=== PATIENT | female | born 1930 | race Hispanic/Latino ===

== ENCOUNTER 2018-09-23 08:44 | Emergency (ER) | payer MEDICARE ==
[2018-09-23] MEDS ORDERED: Ondansetron PF 4 MG/2 ML Vial ONE (09:16)
[2018-09-23 09:23] LABS: #Lymphocytes 1.8 thou/uL (1.20-3.40); #Monocytes 0.5 thou/uL (0.11-0.59); #Neutrophils 6.4 thou/uL (1.40-6.50); %Basophils 0.1 % (0.0-1.0); %Eosinophils 0.1 % (0.0-10.0); %Lymphocytes 20.3 % (21.0-51.0); %Neutrophils 73.5 % (42.0-75.0); Hemoglobin 12.7 g/dL (12.0-16.0); Mean Corpuscular HGB CONC 32.7 g/dL (32.0-36.0); Mean Corpuscular Hemoglobin 30.8 pg (27.0-31.0); Mean Corpuscular Volume 94.1 fL (78.0-98.0); Mean Platelet Volume 7.7 fL (7.4-10.4); Platelet Count 291 thou/uL (130-400); RBC Distribution Width 11.2 % (11.5-14.5); Red Blood Cell (RBC) Count 4.12 mill/uL (4.20-5.40); White Blood Cell (WBC) Count 8.7 thou/uL (4.8-10.8)
[2018-09-23 09:47] LABS: ALT (SGPT) 11 U/L (8-55); AST (SGOT) 17 U/L (5-34); Albumin 4.6 g/dL (3.4-4.8); Alkaline Phosphatase 75 U/L (40-150); Anion Gap 18 mmol/L (10-20); BUN (Urea Nitrogen) 31 mg/dL (9.8-20.1); Bilirubin, Total 0.9 mg/dL (0.2-1.2); Calc. Creatinine Clearance 0 mL/min (70-130); Calcium 10.5 mg/dL (7.8-10.44); Carbon Dioxide 29 mmol/L (23-31); Chloride 94 mmol/L (98-107); Estimated GFR-MDRD 36; Globulin 3.3 g/dL (2.4-3.5); Glucose 151 mg/dL (83-110); Lipase 11 U/L (8-78); Potassium 4.2 mmol/L (3.5-5.1); Protein, Total 7.9 g/dL (6.0-8.3); Sodium 137 mmol/L (136-145)
[2018-09-23 10:48] LABS: Bilirubin Negative (Negative); Blood, Urine Trace (Negative); Clarity CLEAR (Clear); Glucose, Urine (Dipstick) Negative (Negative); Leukocyte Negative (Negative); Nitrite Negative (Negative); Protein, Urine (Dipstick) 30 mg/dL (Neg-Trace); Specific Gravity, Urine 1.015 (1.005-1.030); Urobilinogen 0.2 mg/dL (0.2-1.0); pH, Urine 8.5 (5.0-9.0)
[2018-09-23 10:49] LABS: Bacteria/HPF 2+ HPF (None Seen); Hyaline Casts/LPF NONE SEEN LPF (0-3 Hyaline); RBC/HPF 0-3 HPF (0-3); WBC/HPF 21-50 HPF (0-3)
== END 2018-09-23 11:12 | disposition home or self-care (01) ==
LOC: ERS 08:44
DX: R11.2 Nausea with vomiting, unspecified (principal); K21.9 Gastro-esophageal reflux disease without esophagitis; I10 Essential (primary) hypertension; M81.0 Age-related osteoporosis without current pathological fracture; Z79.899 Other long term (current) drug therapy; Z86.73 Personal history of transient ischemic attack (TIA), and cerebral infarction without residual deficits
CPT/HCPCS: 80053; 81003; 81015; 83690; 85025; 96361; 96374; J2405

== ENCOUNTER 2018-09-24 07:53 | Outpatient (CLI) | payer MEDICARE, OTHER ==
--- NOTE | 2018-09-24 08:50 | CT ---
CT BRAIN: History: Episodes of weakness. Dehydration. FINDINGS: Noncontrast enhanced CT images of the brain obtained. Brain and bone windows obtained. Images demonstrate the brain to be unremarkable. No evidence of intracranial masses, hemorrhages, str okes or contusions seen. Ventricles are of normal size. IMPRESSION: Normal CT brain. POS: [facility]
== END 2018-09-24 07:54 | disposition home or self-care (01) ==
LOC: BICCT 07:53
PROVIDERS: ATTEND Internal Medicine Geriatric Medicine
DX: G45.9 Transient cerebral ischemic attack, unspecified (principal)
CPT/HCPCS: 70450

== ENCOUNTER 2019-03-12 11:11 | Emergency (ER) | payer MEDICARE, OTHER ==
--- NOTE | 2019-03-12 11:36 | RAD ---
XR Shoulder Rt 3 View STANDARD HISTORY: Fall, right shoulder pain FINDINGS: No fracture or dislocation is identified. Degenerative changes are noted.
== END 2019-03-12 12:20 | disposition home or self-care (01) ==
LOC: ERS 11:11
DX: S46.001A Unspecified injury of muscle(s) and tendon(s) of the rotator cuff of right shoulder, initial encounter (principal); I10 Essential (primary) hypertension; M81.0 Age-related osteoporosis without current pathological fracture; Z86.73 Personal history of transient ischemic attack (TIA), and cerebral infarction without residual deficits; Z79.899 Other long term (current) drug therapy; W19.XXXA Unspecified fall, initial encounter

== ENCOUNTER 2019-03-26 08:59 | Outpatient (CLI) | payer MEDICARE, OTHER ==
--- NOTE | 2019-03-26 11:29 | MMO ---
Bilateral MAMMO Bilat Screen DDI+ADAL. CLINICAL HISTORY: Patient is 88 years old and is seen for screening. The patient has no family history of breast cancer. The patient has no personal history of cancer. VIEWS: The views performed were: bilateral craniocaudal with tomosynthesis and bilateral mediolateral oblique with tomosynthesis. FILMS COMPARED: The present examination has been compared to a prior imaging study performed at [facility] on 03/19/2018. MAMMOGRAM FINDINGS: There are scattered fibroglandular densities. Finding 1: There is a new lobular mass measuring 14 millimeters seen in the middle region of the right breast at 10 o'clock. Finding 2: There are vascular calcifications seen in both breasts. IMPRESSION: FINDING 1: NEW MASS IN THE RIGHT BREAST REQUIRES ADDITIONAL EVALUATION. AN ULTRASOUND EXAM IS RECOMMENDED IF NEEDED. ADDITIONAL IMAGING. FINDING 2: CALCIFICATIONS IN BOTH BREASTS ARE BENIGN. THE RESULTS OF THIS EXAM WERE SENT TO THE PATIENT. ACR BI-RADS Category 0 - Incomplete: Need additional imaging evaluation. [facility] will notify the patient of the need for additional imaging services. MAMMOGRAPHY NOTE: 1. A negative mammogram report should not delay a biopsy if a dominant of clinically suspicious mass is present. 2. Approximately 10% to 15% of breast cancers are not detected by mammography. 3. Adenosis and dense breasts may obscure an underlying neoplasm. Reported by: BRENNA GUTIÉRREZ MD Electonically Signed: [id number]
== END 2019-03-26 09:00 | disposition home or self-care (01) ==
LOC: BICMAMMO 08:59
PROVIDERS: ATTEND Family Medicine
DX: Z12.31 Encounter for screening mammogram for malignant neoplasm of breast (principal); R92.1 Mammographic calcification found on diagnostic imaging of breast
CPT/HCPCS: 77063; 77067

== ENCOUNTER 2019-04-05 12:49 | Outpatient (CLI) | payer MEDICARE, OTHER ==
--- NOTE | 2019-04-05 13:58 | MMO ---
Right Breast MAMMO Unilat Diag DDI RT+ADAL. CLINICAL HISTORY: Patient is 88 years old and is seen for additional evaluation requested from prior study. The patient has no family history of breast cancer. The patient has no personal history of cancer. VIEWS: The views performed were: right craniocaudal spot compression with tomosynthesis; right mediolateral oblique spot compression with tomosynthesis; and right mediolateral with tomosynthesis. FILMS COMPARED: The present examination has been compared to prior imaging studies performed at [facility] on 03/19/2018, 03/26/2019 and 04/05/2019. This study has been interpreted with the assistance of computer-aided detection. MAMMOGRAM FINDINGS: There are scattered fibroglandular densities. There is a lobular mass measuring 14 millimeters seen in the upper-outer region of the right breast. IMPRESSION: MASS IN THE RIGHT BREAST IS SUSPICIOUS. BIOPSY IS RECOMMENDED. THE RESULTS OF THIS EXAM WERE SENT TO THE PATIENT. ACR BI-RADS Category 4 - Suspicious abnormality - biopsy should be considered MAMMOGRAPHY NOTE: 1. A negative mammogram report should not delay a biopsy if a dominant of clinically suspicious mass is present. 2. Approximately 10% to 15% of breast cancers are not detected by mammography. 3. Adenosis and dense breasts may obscure an underlying neoplasm. Reported by: KELSEY GR MD Electonically Signed: [id number]
--- NOTE | 2019-04-05 14:53 | ULT ---
FOCUSED ULTRASOUND RIGHT BREAST: DATE: 04/05/2019. COMPARISON: None. HISTORY: Abnormal mammogram, evaluate for a sonographic correlate. FINDINGS: Focused ultrasound of the right breast at the 10 o'clock position 4 cm from the nipple demonstrates a loculated solid hypoechoic mass with internal blood flow measuring 1.9 x 0.9 x 1.6 cm. This correla tiara in size and location with the mammographic abnormality. There is an additional solid hypoechoic nodule immediately adjacent to this measuring 6 x 5 mm. IMPRESSION: BI-RADS IV- suspicious abnormality. Findings are suspicious for malignancy. Recommend ultrasound-gu ided core biopsy. Results and recommendations for biopsy discussed with the patient and the patient's daughter in perso n by Dr. Rousseau at the time of interpretation 04/05/2019. CODE CR POS: OFF
== END 2019-04-05 12:50 | disposition home or self-care (01) ==
LOC: BICMAMMO 12:49
PROVIDERS: ATTEND Family Medicine
DX: N63.11 Unspecified lump in the right breast, upper outer quadrant (principal)
CPT/HCPCS: 76642; 77065; G0279

== ENCOUNTER → 2019-04-19 | Day surgery (SDC) | payer MEDICARE, OTHER ==
--- NOTE | 2019-04-19 13:42 | MMO ---
Right Breast MAMMO Unilat Diag DDI RT. CLINICAL HISTORY: Patient is 88 years old and is seen for breast biopsy. The patient has no family history of breast cancer. The patient has no personal history of cancer. The patient has a history of right Ultrasound Guided Core Biopsy in March,. VIEWS: The views performed were: right craniocaudal and right mediolateral oblique. FILMS COMPARED: The present examination has been compared to prior imaging studies performed at [facility] on 03/19/2018, 03/26/2019 and 04/05/2019. This study has been interpreted with the assistance of computer-aided detection. MAMMOGRAM FINDINGS: There are scattered fibroglandular densities. There is a stable lobular mass seen in the right breast at 10 o'clock. There is a new biopsy clip adjacent to the mass. IMPRESSION: STABLE MASS IN THE RIGHT BREAST IS SUSPICIOUS. THE RESULTS OF THIS EXAM WERE SENT TO THE PATIENT. ACR BI-RADS Category 4 - Suspicious abnormality - biopsy should be considered MAMMOGRAPHY NOTE: 1. A negative mammogram report should not delay a biopsy if a dominant of clinically suspicious mass is present. 2. Approximately 10% to 15% of breast cancers are not detected by mammography. 3. Adenosis and dense breasts may obscure an underlying neoplasm. Reported by: BRENNA GUTIÉRREZ MD Electonically Signed: [id number]
--- NOTE | 2019-04-19 14:00 | ULT ---
Dictated in error.
--- NOTE | 2019-04-20 07:59 | ULT ---
ULTRASOUND GUIDED RIGHT BREAST MASS BIOPSY: Date: 04/19/19 INDICATION: History of right breast mass in 10 o'clock position. TECHNIQUE: Informed consent was obtained. Preprocedure ultrasound examination demonstrated the lobulated lesion within the right breast 10 o'clock position, 4.0 cm from the nipple. The additional smaller 6.0 mm le adilia reported adjacent to this lesion, was not identified and was likely related to an extension of t his larger lobulated lesion. Therefore, no additional biopsy was performed. Site overlying this right breast mass was prepped and draped in the usual sterile fashion. Buffered 1% lidocaine was administe red to overlying subcutaneous tissues. Small dermatotomy was made. A 14 gauge Bard core biopsy gun wa s guided down to the lesion. Four separate core samples were obtained through the lesion. Following t he fourth sample, a biopsy clip was placed within the mass lesion. Pressure was held at the biopsy si te until hemostasis was obtained. The patient tolerated the biopsy without difficulty. IMPRESSION: BI-RADS Category 4 - Suspicious abnormality. Status post ultrasound guided core biopsy of the right b reast mass 10 o'clock lesion, 4.0 cm from the nipple. POS: OFF
== END ==
LOC: BICULT 12:41
PROVIDERS: ATTEND Family Medicine
PROC: 0HBT3ZX Excision of Right Breast, Percutaneous Approach, Diagnostic (ICD-10-PCS; principal; 2019-04-19)
DX: C50.411 Malignant neoplasm of upper-outer quadrant of right female breast (principal)
CPT/HCPCS: 19083; 88305; 88341; 88342

== ENCOUNTER 2019-05-04 12:14 | Outpatient (CLI) | payer MEDICARE ==
--- NOTE | 2019-05-04 13:37 | ULT ---
BILATERAL CAROTID DUPLEX ULTRASOUND: HISTORY: Facial numbness. TECHNIQUE: Sy scale ultrasound with color flow and spectral Doppler imaging of the intracranial carotid artery systems is performed bilaterally. FINDINGS: No significant plaque formation is seen on the right. The peak systolic velocity in the right ICA measures 124 cm/s with an end-diastolic velocity of 18 cm /s and a systolic ratio of 1.47. The peak systolic velocity in the left ICA measures 88 cm/s with an end-diastolic velocity of 15 cm/s and a systolic ratio of 0.98. Flow in both vertebral arteries remains antegrade. IMPRESSION: No evidence of hemodynamically significant stenosis. POS: [facility]
== END 2019-05-04 12:15 | disposition home or self-care (01) ==
LOC: BICULT 12:14
PROVIDERS: ATTEND Surgery
DX: G45.9 Transient cerebral ischemic attack, unspecified (principal); R20.8 Other disturbances of skin sensation
CPT/HCPCS: 93880

== ENCOUNTER 2019-05-25 05:23 | Outpatient (CLI) | payer MEDICARE ==
[2019-05-25 11:42] LABS: #Eosinphils 0.1 thou/uL (0.0-0.7); #Lymphocytes 1.9 thou/uL (1.20-3.40); #Monocytes 0.6 thou/uL (0.11-0.59); #Neutrophils 5.2 thou/uL (1.40-6.50); %Basophils 0.5 % (0.0-1.0); %Eosinophils 0.7 % (0.0-10.0); %Lymphocytes 24.9 % (21.0-51.0); %Monocytes 7.3 % (0.0-10.0); %Neutrophils 66.6 % (42.0-75.0); Hemoglobin 11.5 g/dL (12.0-16.0); Mean Corpuscular HGB CONC 33.9 g/dL (32.0-36.0); Mean Corpuscular Hemoglobin 31.4 pg (27.0-31.0); Mean Corpuscular Volume 92.5 fL (78.0-98.0); Mean Platelet Volume 7.3 fL (7.4-10.4); Platelet Count 224 thou/uL (130-400); RBC Distribution Width 11.1 % (11.5-14.5); Red Blood Cell (RBC) Count 3.67 mill/uL (4.20-5.40); White Blood Cell (WBC) Count 7.8 thou/uL (4.8-10.8)
[2019-05-25 12:09] LABS: Anion Gap 13 mmol/L (10-20); BUN (Urea Nitrogen) 17 mg/dL (9.8-20.1); Calc. Creatinine Clearance 0 mL/min (70-130); Calcium 9.5 mg/dL (7.8-10.44); Carbon Dioxide 24 mmol/L (23-31); Chloride 99 mmol/L (98-107); Estimated GFR-MDRD 60; Glucose 105 mg/dL (83-110); Potassium 4.3 mmol/L (3.5-5.1); Sodium 132 mmol/L (136-145)
--- NOTE | 2019-05-26 07:17 | EKG ---
Test Reason : Blood Pressure : / mmHG Vent. Rate : 065 BPM Atrial Rate : 065 BPM P-R Int : 128 ms QRS Dur : 070 ms QT Int : 384 ms P-R-T Axes : 063 043 042 degrees QTc Int : 399 ms Normal sinus rhythm Normal ECG When compared with ECG of 20-JAN-2017 09:56, No significant change was found Confirmed by DR. Shira AVILES ([id number]) on 05/26/2019 7:17:11 AM Referred By: AMY Confirmed By:DR. Shira AVILES
== END 2019-05-25 05:24 | disposition home or self-care (01) ==
LOC: LABBT 05:23
PROVIDERS: ATTEND Surgery
DX: Z01.818 Encounter for other preprocedural examination (principal); C50.919 Malignant neoplasm of unspecified site of unspecified female breast
CPT/HCPCS: 80048; 85025; 93005; 93010

== ENCOUNTER 2019-05-28 07:47 | Day surgery (SDC) | payer MEDICARE ==
[2019-05-25 10:42] VITALS: BMI 24.0
--- NOTE | 2019-05-28 08:48 | NM ---
Exam: Nuclear medicine lymphoscintigraphy HISTORY: Right breast cancer. Evaluate for sentinel lymph node TECHNIQUE: Patient measured 0.412 mCi of technetium 99m filtered sulfur colloid subcutaneously Radiotracer was administered at the 12:00, 3:00, 6:00 and 9:00 position of the breast. FINDINGS: [place] lymph node is noted in the right axilla. IMPRESSION: Right axillary sentinel lymph node
[2019-05-28] MEDS ORDERED: Succinylcholine Chloride 20 MG/ML 10 ml SYRINGE FS ONE (10:08)
[2019-05-28] MEDS ORDERED: Esmolol 100 MG/10 ML VIAL ONE (10:08)
[2019-05-28] MEDS ORDERED: ePHEDrine/0.9% NaCl/PF SYRINGE 50 mg/10 ml ONE (10:08)
[2019-05-28] MEDS ORDERED: Dexamethasone 20 MG/5 ML VIAL ONE (10:08)
[2019-05-28] MEDS ORDERED: PROPOFOL 200 MG/20 ML VIAL ONE (10:08)
[2019-05-28] MEDS ORDERED: Lidocaine 1% PF 5 ML VIAL ONE (10:08)
[2019-05-28] MEDS ORDERED: Isosulfan Blue 50 MG/5 ML VIAL ONE (14:01)
[2019-05-28] MEDS ORDERED: Bupivacaine HCl 0.5%/Epinephrine 1:200,000/PF 30 ml Vial ONE (14:01)
[2019-05-28] MEDS ORDERED: Famotidine/PF 20 mg/2ml Vial ONE (14:02)
[2019-05-28] MEDS ORDERED: Fentanyl 100 MCG/2 ML VIAL ONE ×2 (14:02→15:07)
--- NOTE | 2019-05-28 16:05 | MMO ---
MAMMO Surgial Specimen HISTORY: Specimen radiograph. COMPARISON: None. FINDINGS: A single specimen radiograph shows a biopsy clip and what appears to be of breast mass with in the specimen. IMPRESSION: Successful excisional biopsy of biopsy clip and associated breast mass
--- NOTE | 2019-06-02 15:19 | PDOC.OP ---
Operative Note - Operative Note Operative Note: PROCEDURE: Right breast lumpectomy and sentinel lymph node biopsy SURGEON: Tejas Rodriguez M.D. DATE: 05/28/2019 PREOPERATIVE DIAGNOSIS: Right breast cancer POSTOPERATIVE DIAGNOSIS: Right breast cancer HISTORY: Patient with recently diagnosed right breast cancer test decided to proceed with breast conservation therapy. The mass is palpable in the upper outer quadrant and is easily seen on ultrasound and her axilla is clinically negative. PROCEDURE IN DETAIL: After informed consent was obtained the patient was taken to the operating room and placed in the supine position. General anesthesia was administered and the breast was prepped with alcohol and lymphazurin injected subdermally behind the nipple. The breast was massaged for 5 minutes, and then the patient was positioned, prepped and draped. Local anesthesia was infused to the lower edge of the hairbearing skin of the axilla. The skin was incised and dissection carried down to the area of highest activity by neoprobe. 2 lymph nodes with increased activity were identified and excised and target counts performed. The first one had a target count of 11 and was blue. The second one had a target count of 96 and was also blue. Both were clinically normal in appearance. The axilla was examined and palpated and no other palpable abnormal nodes nor areas of increased activity were found. The wound was irrigated and hemostasis verified. Additional local anesthesia was infused for postoperative pain control and the subcutaneous tissues were reapproximated with 3-0 Monocryl suture and the skin closed with 4-0 Monocryl suture. Attention was then turned to the lumpectomy. The mass in the right breast was identified by ultrasound and a needle localization carried out under ultrasound guidance. Local anesthesia was infused the skin and subcutaneous tissues, and an incision was made directly over the mass. Flaps were raised in all directions and dissection was then carried down circumferentially around the wire to below the level of the mass and wire. The tissues deep to the mass were then transected and the specimen was removed and marked for orientation with a long lateral, short superior, and looped superficial suture. The wire was removed, and the mass was sent for specimen mammogram which showed presence of the mass and clip within the specimen. The wound was irrigated and hemostasis obtained using Bovie electrocautery. Additional local anesthesia was infused circumferentially for postoperative pain control. The subcutaneous tissues were reapproximated with a running 3-0 Monocryl suture and additional local anesthesia infused into the biopsy cavity. The skin was then closed with a running 4-0 subcuticular Monocryl suture. Dermabond dressings were placed to both incisions and once this was dry, fluffs compression dressings were placed and secured to the skin with tape. The patient was extubated and taken to the recovery room in good condition. Estimated blood loss was minimal. There were no complications. Specimens are sentinel lymph nodes 2 and right breast mass.
== END 2019-05-28 18:43 | disposition home or self-care (01) ==
LOC: SDC 07:47
PROVIDERS: ATTEND Surgery
PROC: 0HBT0ZZ Excision of Right Breast, Open Approach (ICD-10-PCS; principal; 2019-05-28)
PROC: 07B53ZX Excision of Right Axillary Lymphatic, Percutaneous Approach, Diagnostic (ICD-10-PCS; 2019-05-28)
DX: C50.411 Malignant neoplasm of upper-outer quadrant of right female breast (principal); G45.9 Transient cerebral ischemic attack, unspecified; I10 Essential (primary) hypertension; K21.9 Gastro-esophageal reflux disease without esophagitis; Z17.0 Estrogen receptor positive status [ER+]
CPT/HCPCS: 19301; 38525; 76098; 78195; 88307; 88342; A9541; Q9968; J0131; J0670; J0690; J1100; J2001; J2704; J3010; S0028

== ENCOUNTER 2020-04-14 09:20 | Outpatient (CLI) | payer MEDICARE ==
--- NOTE | 2020-04-14 10:02 | MMO ---
Bilateral MAMMO Bilat Diag DDI+ADAL. CLINICAL HISTORY: Patient is 89 years old and is seen for diagnostic exam. The patient has no family history of breast cancer. The patient has a history of Ultrasound guided core biopsy procedure revealed invasive ductal right breast carcinoma in April,. The patient has a history of right Ultrasound Guided Core Biopsy in March, and right Excisional Biopsy in 2019 - malignant. VIEWS: The views performed were: bilateral craniocaudal with tomosynthesis; bilateral mediolateral oblique with tomosynthesis; and bilateral mediolateral with tomosynthesis. FILMS COMPARED: The present examination has been compared to prior imaging studies performed at [facility] on 03/26/2019, 04/05/2019 and 04/19/2019. This study has been interpreted with the assistance of computer-aided detection. MAMMOGRAM FINDINGS: There are scattered fibroglandular densities. Benign calcifications are noted bilaterally. There are right post-operative changes. There are no suspicious masses, suspicious calcifications, or new areas of architectural distortion. IMPRESSION: THERE IS NO MAMMOGRAPHIC EVIDENCE OF MALIGNANCY. A ROUTINE FOLLOW-UP MAMMOGRAM IN 1 YEAR IS RECOMMENDED. THE RESULTS OF THIS EXAM WERE SENT TO THE PATIENT. ACR BI-RADS Category 2 - Benign finding MAMMOGRAPHY NOTE: 1. A negative mammogram report should not delay a biopsy if a dominant of clinically suspicious mass is present. 2. Approximately 10% to 15% of breast cancers are not detected by mammography. 3. Adenosis and dense breasts may obscure an underlying neoplasm. Reported by: LIANA MARTINEZ MD Electonically Signed: [id number]
== END 2020-04-14 09:21 | disposition home or self-care (01) ==
LOC: BICMAMMO 09:20
PROVIDERS: ATTEND Internal Medicine Hematology & Oncology
DX: Z08 Encounter for follow-up examination after completed treatment for malignant neoplasm (principal); Z85.3 Personal history of malignant neoplasm of breast
CPT/HCPCS: 77066; G0279

== ENCOUNTER 2020-06-13 10:51 | Outpatient (CLI) | payer MEDICARE ==
--- NOTE | 2020-06-13 11:32 | RAD ---
XR Lumbar Spine 2 Or 3 View HISTORY: Low back pain FINDINGS: No acute fracture, subluxation or bony destruction is seen. Degenerative changes are present.
== END 2020-06-13 10:52 | disposition home or self-care (01) ==
LOC: BICRAD 10:51
PROVIDERS: ATTEND Family Medicine
DX: M54.5 Low back pain (principal)
CPT/HCPCS: 72100

== ENCOUNTER 2020-07-17 10:03 | Outpatient (CLI) | payer MEDICARE ==
--- NOTE | 2020-07-17 10:40 | BD ---
DEXA bone density scan: 07/17/2020 HISTORY: Postmenopausal female undergoing screening for osteoporosis. 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 Femoral nec k osteopenia noted. Transcribed Date/Time: 07/17/2020 10:46 AM
== END 2020-07-17 10:04 | disposition home or self-care (01) ==
LOC: BICMAMMO 10:03
PROVIDERS: ATTEND Internal Medicine Hematology & Oncology
DX: Z13.820 Encounter for screening for osteoporosis (principal); M81.0 Age-related osteoporosis without current pathological fracture; Z78.0 Asymptomatic menopausal state
CPT/HCPCS: 77080

== ENCOUNTER 2021-03-05 08:53 | Outpatient (CLI) | payer MEDICARE | END 2021-03-05 08:54 | disposition home or self-care (01) | LOC: BICRAD 08:53 | PROVIDERS: ATTEND Family Medicine | DX: R05 Cough (principal) | CPT/HCPCS: 71046 ==

== ENCOUNTER 2021-05-02 09:18 | Outpatient (CLI) | payer MEDICARE | END 2021-05-02 09:19 | disposition home or self-care (01) | LOC: BICMAMMO 09:18 | PROVIDERS: ATTEND Surgery | DX: Z08 Encounter for follow-up examination after completed treatment for malignant neoplasm (principal); Z85.3 Personal history of malignant neoplasm of breast | CPT/HCPCS: 77066; G0279 ==

== ENCOUNTER 2021-05-28 15:05 | Outpatient (CLI) | payer MEDICARE | END 2021-05-28 15:06 | disposition home or self-care (01) | LOC: BICULT 15:05 | PROVIDERS: ATTEND Family Medicine | DX: R09.89 Other specified symptoms and signs involving the circulatory and respiratory systems (principal) | CPT/HCPCS: 93880 ==

== ENCOUNTER 2021-07-03 14:57 | Outpatient (CLI) | payer MEDICARE | END 2021-07-03 14:58 | disposition home or self-care (01) | LOC: BICMAMMO 14:57 | PROVIDERS: ATTEND Internal Medicine Hematology & Oncology | DX: M81.8 Other osteoporosis without current pathological fracture (principal); M85.88 Other specified disorders of bone density and structure, other site | CPT/HCPCS: 77080 ==